=== PATIENT | male | born 1955 | race Caucasian/White ===

== ENCOUNTER → 2017-05-13 | Outpatient (CLI) | payer MEDICARE, MEDICAID ==
[2017-05-13] MEDS: IOHEXOL 300MG/ML 150 ML BTL (11:50)
== END | disposition home or self-care (01) ==
LOC: C/S 10:18
DX: Z01.818 Encounter for other preprocedural examination (principal); C20 Malignant neoplasm of rectum
CPT/HCPCS: 74176

== ENCOUNTER 2017-06-03 09:50 | Inpatient (IN) | payer MEDICARE, OTHER ==
[2017-06-03] MEDS: CEFAZOLIN 2 GM/50 ML (PMX) 50 ML IVPB (09:30)
[~2017-06-03 09:50] MED LIST: CEFAZOLIN 1 GM INJ; D5W-0.45 NACL + KCL 20 MEQ 1,000 ML IV; DEXAMETHASONE 4 MG/ML 1 ML INJ; HYDROmorphONE 2 MG/ML SYG; METOCLOPRAMIDE 10 MG INJ; METOPROLOL 5 MG INJ; ONDANSETRON 4 MG INJ
[2017-06-03] MEDS ORDERED: MIDAZOLAM 1 MG/ML 2 ML INJ (10:58)
[2017-06-03] MEDS ORDERED: FENTAnyl 50 MCG/ML VIAL (10:58)
[2017-06-03] MEDS ORDERED: SUGAMMADEX SODIUM 200 MG/2 ML VIAL IV (11:00)
[2017-06-03] MEDS ORDERED: PROPOFOL 20 ML (11:01)
[2017-06-03] MEDS ORDERED: ROCURONIUM 50 MG INJ (11:01)
[2017-06-03] MEDS ORDERED: LIDOCAINE 2% (SDV) 5 ML INJ (11:01)
[2017-06-03] MEDS ORDERED: SUCCINYLCHOLINE CHLORIDE 100 MG/5 ML SYG IV (11:01)
[2017-06-03 11:07] LABS: ADD MAN DIFF? NO
[2017-06-03 11:10] LABS: WHITE BLOOD COUNT 8.9 10^3/ul (4.8-10.8)
[2017-06-03 11:10] LABS: BASOPHILS % 0.5 % (0.0-2.0); EOSINOPHILS # 0.2 10^3/ul (0.0-0.5); EOSINOPHILS % 1.8 % (0.0-7.0); HEMATOCRIT 29.5 % (42.0-52.0); HEMOGLOBIN 9.5 g/dl (14.0-18.0); LYMPHOCYTES # 0.7 10^3/ul (0.8-2.9); LYMPHOCYTES % 8.1 % (15.0-51.0); MEAN CORPUSCULAR HEMOGLOBIN 31.1 pg (29.0-33.0); MEAN CORPUSCULAR HGB CONC 32.2 g/dl (32.0-37.0); MEAN CORPUSCULAR VOLUME 96.7 fl (82.0-101.0); MEAN PLATELET VOLUME 8.9 fl (7.4-10.4); MONOCYTE # 0.6 10^3/ul (0.3-0.9); MONOCYTES % 6.3 % (0.0-11.0); NEUTROPHIL # 7.3 10^3/ul (1.6-7.5); NEUTROPHILS % 82.3 % (39.0-77.0); PLATELET COUNT 334 10^3/UL (140-415); RED BLOOD COUNT 3.05 10^6/ul (4.70-6.10); RED CELL DISTRIBUTION WIDTH 14.6 % (11.5-14.5)
[2017-06-03 11:29] LABS: ALANINE AMINOTRANSFERASE 42 IU/L (13-69); ALBUMIN 4.6 g/dl (3.3-4.9); ALBUMIN/GLOBULIN RATIO 1.48; ALKALINE PHOSPHATASE 72 IU/L (42-121); ANION GAP 17 (8-16); ASPARTATE AMINO TRANSFERASE 37 IU/L (15-46); BILIRUBIN,INDIRECT 0.3 mg/dl (0-1.1); BILIRUBIN,TOTAL 0.3 mg/dl (0.2-1.3); CARBON DIOXIDE 22 mmol/L (21-31); CHLORIDE 116 mmol/L (97-110); GLUCOSE 113 mg/dl (70-220); TOTAL PROTEIN 7.7 g/dl (6.1-8.1)
[2017-06-03 11:32] LABS: BLOOD UREA NITROGEN 31 mg/dl (7-20); CALCIUM 9.2 mg/dl (8.4-10.2); CREATININE 2.34 mg/dl (0.61-1.24); POTASSIUM 4.3 mmol/L (3.5-5.1); SODIUM 151 mmol/L (135-144)
[2017-06-03 11:40] LABS: PROTIME 12.2 Sec (11.9-14.9)
[2017-06-03 12:00] LABS: PARTIAL THROMBOPLASTIN TIME 39.1 Sec (25.0-35.0)
[2017-06-03] MEDS ORDERED: ACETAMINOPHEN 1000MG/100ML IV 100 ML (13:06)
[2017-06-03] MEDS ORDERED: D5W-0.45 NACL + KCL 20 MEQ 1,000 ML IV (14:18)
[2017-06-03] MEDS ORDERED: BISACODYL 10 MG SUPP PR (14:30)
[2017-06-03] MEDS ORDERED: HYDROmorphONE 0.5 MG/0.5 ML SYG IV (14:30)
[2017-06-03] MEDS ORDERED: HYDROmorphONE (0.2 MG/ML) 10ML SYG IV ×2 (14:30)
[2017-06-03] MEDS ORDERED: LABETALOL HCL 20MG INJ IV (14:30)
[2017-06-03] MEDS ORDERED: HYDROCODONE/APAP (5/325) TAB PO ×2 (14:30)
[2017-06-03] MEDS ORDERED: METOCLOPRAMIDE 10 MG INJ IV (14:30)
[2017-06-03] MEDS ORDERED: DOCUSATE SODIUM 100 MG CAP PO (14:30)
[2017-06-03] MEDS ORDERED: DIPHENHYDRAMINE 50 MG INJ IV (14:30)
[2017-06-03] MEDS ORDERED: KETOROLAC 30 MG INJ IV (14:30)
[2017-06-03] MEDS ORDERED: FENTAnyl 50 MCG/ML VIAL IV ×2 (14:30)
[2017-06-03] MEDS ORDERED: NA PHOSPHATE/BIPHOS 133 ML ENEMA PR (14:30)
[2017-06-03] MEDS ORDERED: hydrALAzine 20 MG INJ IV (14:30)
[2017-06-03] MEDS: ONDANSETRON 4 MG INJ IV (15:09)
[2017-06-03] MEDS: MEPERIDINE 25 MG INJ IV (15:09)
[2017-06-03] MEDS ORDERED: GLUCOSE GEL 15 GRAM TUBE BUCCAL (16:00)
[2017-06-03] MEDS ORDERED: GLUCAGON 1 MG INJ IM (16:00)
[2017-06-03] MEDS ORDERED: DEXTROSE 50% 50 ML SYRINGE IV ×2 (16:00)
[2017-06-03] MEDS ORDERED: GLUCOSE GEL 15 GRAM TUBE PO ×2 (16:00)
[2017-06-03] MEDS: 1/2 NS + KCL 20 MEQ 1,000 ML IV (16:35)
[2017-06-03 16:59] LABS: ADD MAN DIFF? NO
[2017-06-03 17:04] LABS: WHITE BLOOD COUNT 17.8 10^3/ul (4.8-10.8)
[2017-06-03 17:04] LABS: ABNORMAL IP MESSAGE 1; BASOPHILS % 0.2 % (0.0-2.0); EOSINOPHILS % 0.1 % (0.0-7.0); HEMATOCRIT 27.7 % (42.0-52.0); HEMOGLOBIN 8.7 g/dl (14.0-18.0); LYMPHOCYTES # 0.5 10^3/ul (0.8-2.9); MEAN CORPUSCULAR HEMOGLOBIN 30.5 pg (29.0-33.0); MEAN CORPUSCULAR HGB CONC 31.4 g/dl (32.0-37.0); MEAN CORPUSCULAR VOLUME 97.2 fl (82.0-101.0); MEAN PLATELET VOLUME 8.8 fl (7.4-10.4); MONOCYTE # 0.1 10^3/ul (0.3-0.9); MONOCYTES % 0.8 % (0.0-11.0); NEUTROPHIL # 16.9 10^3/ul (1.6-7.5); NEUTROPHILS % 94.8 % (39.0-77.0); PLATELET COUNT 295 10^3/UL (140-415); POSITIVE DIFF @See below; RED BLOOD COUNT 2.85 10^6/ul (4.70-6.10); RED CELL DISTRIBUTION WIDTH 14.6 % (11.5-14.5)
[2017-06-03 17:23] LABS: ALANINE AMINOTRANSFERASE 43 IU/L (13-69); ALBUMIN 4.2 g/dl (3.3-4.9); ALKALINE PHOSPHATASE 67 IU/L (42-121); ANION GAP 17 (8-16); ASPARTATE AMINO TRANSFERASE 36 IU/L (15-46); BILIRUBIN,INDIRECT 0.1 mg/dl (0-1.1); BILIRUBIN,TOTAL 0.1 mg/dl (0.2-1.3); BLOOD UREA NITROGEN 29 mg/dl (7-20); CALCIUM 8.2 mg/dl (8.4-10.2); CARBON DIOXIDE 20 mmol/L (21-31); CHLORIDE 118 mmol/L (97-110); CREATININE 2.08 mg/dl (0.61-1.24); GLUCOSE 110 mg/dl (70-220); POTASSIUM 4.8 mmol/L (3.5-5.1); SODIUM 150 mmol/L (135-144)
[2017-06-03 17:24] LABS: MAGNESIUM 1.2 mg/dl (1.7-2.5)
[2017-06-03 17:24] LABS: PHOSPHORUS 2.8 mg/dl (2.5-4.9)
[2017-06-03 17:31] LABS: PROTIME 12.2 Sec (11.9-14.9)
[2017-06-03 17:32] LABS: PARTIAL THROMBOPLASTIN TIME 36.6 Sec (25.0-35.0)
[2017-06-03] MEDS: INSULIN ASPART [NOVOLOG] 3 ML PEN SC ×2 (17:34→21:00)
[2017-06-03] MEDS: ATENOLOL 100 MG TAB PO (21:08)
[2017-06-03] MEDS: AMITRIPTYLINE 50 MG TAB PO (21:08)
[2017-06-03] MEDS: FERROUS SULFATE (EC) 325 MG TAB PO (21:09)
[2017-06-03] MEDS: ATORVASTATIN 10 MG TAB PO (21:09)
[2017-06-03] MEDS: INSULIN GLARGINE [LANtus] 3 ML PEN SC (21:10)
[2017-06-03] MEDS: ACCU-CHEK XX (22:51)
[2017-06-04 05:38] LABS: ADD MAN DIFF? NO
[2017-06-04] MEDS: 1/2 NS + KCL 20 MEQ 1,000 ML IV (05:43)
[2017-06-04 05:46] LABS: BASOPHILS % 0.2 % (0.0-2.0); EOSINOPHILS % 0.3 % (0.0-7.0); HEMOGLOBIN 8.1 g/dl (14.0-18.0); LYMPHOCYTES # 0.7 10^3/ul (0.8-2.9); LYMPHOCYTES % 6.1 % (15.0-51.0); MEAN CORPUSCULAR HEMOGLOBIN 30.9 pg (29.0-33.0); MEAN CORPUSCULAR HGB CONC 32.4 g/dl (32.0-37.0); MEAN CORPUSCULAR VOLUME 95.4 fl (82.0-101.0); MEAN PLATELET VOLUME 9.1 fl (7.4-10.4); MONOCYTE # 0.9 10^3/ul (0.3-0.9); MONOCYTES % 7.7 % (0.0-11.0); NEUTROPHIL # 9.9 10^3/ul (1.6-7.5); NEUTROPHILS % 85.3 % (39.0-77.0); PLATELET COUNT 288 10^3/UL (140-415); RED BLOOD COUNT 2.62 10^6/ul (4.70-6.10); RED CELL DISTRIBUTION WIDTH 14.5 % (11.5-14.5)
[2017-06-04 05:46] LABS: WHITE BLOOD COUNT 11.6 10^3/ul (4.8-10.8)
[2017-06-04 06:03] LABS: INR 1.04; PROTIME 13.7 Sec (11.9-14.9); PT RATIO 1.1
[2017-06-04 06:06] LABS: PARTIAL THROMBOPLASTIN TIME 37.8 Sec (25.0-35.0)
[2017-06-04 06:11] LABS: B-TYPE NATRIURETIC PEPTIDE 719 PG/ML (0-125)
[2017-06-04 06:13] LABS: ALANINE AMINOTRANSFERASE 35 IU/L (13-69); ALBUMIN 3.7 g/dl (3.3-4.9); ALBUMIN/GLOBULIN RATIO 1.37; ALKALINE PHOSPHATASE 52 IU/L (42-121); ANION GAP 16 (8-16); ASPARTATE AMINO TRANSFERASE 32 IU/L (15-46); BILIRUBIN,INDIRECT 0.5 mg/dl (0-1.1); BILIRUBIN,TOTAL 0.5 mg/dl (0.2-1.3); BLOOD UREA NITROGEN 30 mg/dl (7-20); CALCIUM 8.2 mg/dl (8.4-10.2); CARBON DIOXIDE 24 mmol/L (21-31); CHLORIDE 112 mmol/L (97-110); CREATININE 2.09 mg/dl (0.61-1.24); GLUCOSE 80 mg/dl (70-220); MAGNESIUM 1.2 mg/dl (1.7-2.5); PHOSPHORUS 3.2 mg/dl (2.5-4.9); POTASSIUM 3.9 mmol/L (3.5-5.1); SODIUM 148 mmol/L (135-144); TOTAL PROTEIN 6.4 g/dl (6.1-8.1)
[2017-06-04] MEDS: INSULIN ASPART [NOVOLOG] 3 ML PEN SC ×4 (07:50→21:00)
[2017-06-04] MEDS: FAMOTIDINE 20 MG INJ IV (08:44)
[2017-06-04] MEDS: ATENOLOL 100 MG TAB PO ×2 (08:44→20:54)
[2017-06-04] MEDS: FERROUS SULFATE (EC) 325 MG TAB PO ×3 (08:45→20:54)
[2017-06-04] MEDS: AMLODIPINE 5 MG TAB PO (08:45)
[2017-06-04] MEDS: CHOLECALCIFEROL 2,000 UNIT CAP PO (08:45)
[2017-06-04] MEDS: ENOXAPARIN 30 MG/0.3 ML SYG SC (08:59)
[2017-06-04] MEDS: FAMOTIDINE 20 MG TAB PO (20:53)
[2017-06-04] MEDS: AMITRIPTYLINE 50 MG TAB PO (20:54)
[2017-06-04] MEDS: ATORVASTATIN 10 MG TAB PO (20:54)
[2017-06-04] MEDS: INSULIN GLARGINE [LANtus] 3 ML PEN SC (20:58)
[2017-06-04] MEDS: ACCU-CHEK XX (21:37)
[2017-06-05 05:09] LABS: ADD MAN DIFF? NO
[2017-06-05 05:12] LABS: WHITE BLOOD COUNT 14.3 10^3/ul (4.8-10.8)
[2017-06-05 05:12] LABS: BASOPHILS % 0.3 % (0.0-2.0); EOSINOPHILS # 0.1 10^3/ul (0.0-0.5); EOSINOPHILS % 0.6 % (0.0-7.0); HEMATOCRIT 27.4 % (42.0-52.0); LYMPHOCYTES # 0.9 10^3/ul (0.8-2.9); LYMPHOCYTES % 6.3 % (15.0-51.0); MEAN CORPUSCULAR HGB CONC 32.8 g/dl (32.0-37.0); MEAN CORPUSCULAR VOLUME 94.5 fl (82.0-101.0); MEAN PLATELET VOLUME 8.9 fl (7.4-10.4); MONOCYTE # 1.1 10^3/ul (0.3-0.9); MONOCYTES % 7.5 % (0.0-11.0); NEUTROPHIL # 12.2 10^3/ul (1.6-7.5); NEUTROPHILS % 84.9 % (39.0-77.0); PLATELET COUNT 293 10^3/UL (140-415); RED CELL DISTRIBUTION WIDTH 14.5 % (11.5-14.5)
[2017-06-05 05:41] LABS: PROTIME 13.3 Sec (11.9-14.9)
[2017-06-05 06:20] LABS: ALBUMIN/GLOBULIN RATIO 1.56; ANION GAP 14 (8-16)
[2017-06-05 06:45] LABS: ALANINE AMINOTRANSFERASE 27 IU/L (13-69); ALBUMIN 3.6 g/dl (3.3-4.9); ALKALINE PHOSPHATASE 53 IU/L (42-121); ASPARTATE AMINO TRANSFERASE 25 IU/L (15-46); B-TYPE NATRIURETIC PEPTIDE 1500 PG/ML (0-125); BILIRUBIN,INDIRECT 0.5 mg/dl (0-1.1); BILIRUBIN,TOTAL 0.5 mg/dl (0.2-1.3); BLOOD UREA NITROGEN 29 mg/dl (7-20); CALCIUM 8.5 mg/dl (8.4-10.2); CARBON DIOXIDE 21 mmol/L (21-31); CHLORIDE 113 mmol/L (97-110); CREATININE 1.99 mg/dl (0.61-1.24); GLUCOSE 53 mg/dl (70-220); MAGNESIUM 1.3 mg/dl (1.7-2.5); PHOSPHORUS 3.1 mg/dl (2.5-4.9); POTASSIUM 4.2 mmol/L (3.5-5.1); SODIUM 144 mmol/L (135-144); TOTAL PROTEIN 5.9 g/dl (6.1-8.1)
[2017-06-05] MEDS: HYDROmorphONE 0.5 MG/0.5 ML SYG IV ×3 (08:04→13:53)
[2017-06-05] MEDS: ENOXAPARIN 30 MG/0.3 ML SYG SC (08:09)
[2017-06-05] MEDS: INSULIN ASPART [NOVOLOG] 3 ML PEN SC ×4 (09:05→21:00)
[2017-06-05] MEDS: FERROUS SULFATE (EC) 325 MG TAB PO ×3 (10:34→20:23)
[2017-06-05] MEDS: AMLODIPINE 5 MG TAB PO (10:39)
[2017-06-05] MEDS: CHOLECALCIFEROL 2,000 UNIT CAP PO (10:39)
[2017-06-05] MEDS: ATENOLOL 100 MG TAB PO ×2 (10:39→20:23)
[2017-06-05] MEDS: FAMOTIDINE 20 MG TAB PO (20:19)
[2017-06-05] MEDS: AMITRIPTYLINE 50 MG TAB PO (20:20)
[2017-06-05] MEDS: ATORVASTATIN 10 MG TAB PO (20:23)
[2017-06-05] MEDS: ACCU-CHEK XX (21:19)
[2017-06-06 05:37] LABS: ADD MAN DIFF? NO
[2017-06-06 05:41] LABS: BASOPHILS % 0.1 % (0.0-2.0); EOSINOPHILS # 0.1 10^3/ul (0.0-0.5); EOSINOPHILS % 1.3 % (0.0-7.0); HEMATOCRIT 24.8 % (42.0-52.0); HEMOGLOBIN 8.2 g/dl (14.0-18.0); LYMPHOCYTES # 0.7 10^3/ul (0.8-2.9); LYMPHOCYTES % 7.7 % (15.0-51.0); MEAN CORPUSCULAR HEMOGLOBIN 30.6 pg (29.0-33.0); MEAN CORPUSCULAR HGB CONC 33.1 g/dl (32.0-37.0); MEAN CORPUSCULAR VOLUME 92.5 fl (82.0-101.0); MEAN PLATELET VOLUME 9.4 fl (7.4-10.4); MONOCYTE # 0.8 10^3/ul (0.3-0.9); MONOCYTES % 8.6 % (0.0-11.0); NEUTROPHIL # 7.3 10^3/ul (1.6-7.5); NEUTROPHILS % 81.7 % (39.0-77.0); PLATELET COUNT 276 10^3/UL (140-415); RED BLOOD COUNT 2.68 10^6/ul (4.70-6.10)
[2017-06-06 06:04] LABS: ANION GAP 15 (8-16); BLOOD UREA NITROGEN 32 mg/dl (7-20); CALCIUM 8.6 mg/dl (8.4-10.2); CARBON DIOXIDE 21 mmol/L (21-31); CHLORIDE 109 mmol/L (97-110); CREATININE 1.98 mg/dl (0.61-1.24); GLUCOSE 94 mg/dl (70-220); MAGNESIUM 1.4 mg/dl (1.7-2.5); PHOSPHORUS 3.1 mg/dl (2.5-4.9); SODIUM 141 mmol/L (135-144)
[2017-06-06] MEDS: INSULIN ASPART [NOVOLOG] 3 ML PEN SC ×2 (07:50→11:40)
[2017-06-06] MEDS: ENOXAPARIN 30 MG/0.3 ML SYG SC (08:39)
[2017-06-06] MEDS: CHOLECALCIFEROL 2,000 UNIT CAP PO (09:39)
[2017-06-06] MEDS: AMLODIPINE 5 MG TAB PO (09:40)
[2017-06-06] MEDS: FERROUS SULFATE (EC) 325 MG TAB PO ×2 (09:40→13:00)
[2017-06-06] MEDS: ATENOLOL 100 MG TAB PO (09:40)
== END 2017-06-06 13:00 | disposition home or self-care (01) | DRG 330 ==
LOC: REC 09:50 → MS1 15:50
PROC: 0DQB0ZZ Repair Ileum, Open Approach (ICD-10-PCS; principal; 2017-06-03 11:30)
DX: Z43.2 Encounter for attention to ileostomy (principal); C20 Malignant neoplasm of rectum; C77.2 Secondary and unspecified malignant neoplasm of intra-abdominal lymph nodes; C78.7 Secondary malignant neoplasm of liver and intrahepatic bile duct; E11.22 Type 2 diabetes mellitus with diabetic chronic kidney disease; N18.3 Chronic kidney disease, stage 3 (moderate); D50.9 Iron deficiency anemia, unspecified; E78.5 Hyperlipidemia, unspecified; I12.9 Hypertensive chronic kidney disease with stage 1 through stage 4 chronic kidney disease, or unspecified chronic kidney disease; D63.1 Anemia in chronic kidney disease; F51.04 Psychophysiologic insomnia; F17.210 Nicotine dependence, cigarettes, uncomplicated; Z79.4 Long term (current) use of insulin; Z79.84 Long term (current) use of oral hypoglycemic drugs
CPT/HCPCS: 80048; 80053; 82962; 83735; 83880; 84100; 85025; 85610; 85730; 86850; 86900; 86901; 87086; 88307

== ENCOUNTER 2017-06-16 13:01 | Outpatient (CLI) | payer MEDICAID | END 2017-06-16 15:48 | disposition home or self-care (01) | LOC: HPC 13:01 | DX: C20 Malignant neoplasm of rectum (principal); I10 Essential (primary) hypertension; E11.9 Type 2 diabetes mellitus without complications; E78.5 Hyperlipidemia, unspecified; D64.9 Anemia, unspecified; Z93.2 Ileostomy status; Z87.442 Personal history of urinary calculi | CPT/HCPCS: Z7500 ==